=== PATIENT | male | born 1955 | race Caucasian/White ===

== ENCOUNTER 2017-04-04 10:41 | Emergency (ER) | payer SELFPAY ==
[~2017-04-04] VITALS: Ht 142.2 cm; Wt 41.0 kg
[2017-04-04] MEDS ORDERED: FURO20TA4 PO (10:50)
[2017-04-04] MEDS ORDERED: OLAN2.5T3 PO (10:50)
[2017-04-04] MEDS ORDERED: OMEP20CA10 PO (10:50)
[2017-04-04 14:22] VITALS: BP 130/70
== END 2017-04-04 14:25 | disposition home or self-care (01) ==
LOC: ER 11:34
DX: R32 Unspecified urinary incontinence (principal); F20.9 Schizophrenia, unspecified; F79 Unspecified intellectual disabilities; Z53.29 Procedure and treatment not carried out because of patient's decision for other reasons
CPT/HCPCS: 99283

== ENCOUNTER 2017-05-03 12:58 | Emergency (ER) | payer SELFPAY ==
[~2017-05-03] VITALS: Ht 162.6 cm; Wt 75.0 kg
[~2017-05-03 12:58] MED LIST: FURO20TA4 PO; OLAN2.5T3 PO; OMEP20CA10 PO
[2017-05-03 13:53] VITALS: BP 148/74
== END 2017-05-03 16:04 | disposition home or self-care (01) ==
LOC: ER 13:14
DX: Z00.00 Encounter for general adult medical examination without abnormal findings (principal); F41.9 Anxiety disorder, unspecified; F20.9 Schizophrenia, unspecified; F79 Unspecified intellectual disabilities
CPT/HCPCS: 99281